=== PATIENT | female | born 1960 | race Caucasian/White ===

== ENCOUNTER → 2024-11-21 14:46 | Outpatient (REF) | payer BC, SELFPAY | LOC: HWRAD 14:46 | PROVIDERS: ATTENDING PHYSICIAN Nurse Practitioner Family | DX: R19.00 Intra-abdominal and pelvic swelling, mass and lump, unspecified site (principal); J18.9 Pneumonia, unspecified organism; R63.4 Abnormal weight loss | CPT/HCPCS: 76705 ==

== ENCOUNTER → 2025-01-02 14:46 | Outpatient (REF) | payer BC, SELFPAY | LOC: HWWDC 14:46 | PROVIDERS: ATTENDING PHYSICIAN Nurse Practitioner Family | DX: Z12.31 Encounter for screening mammogram for malignant neoplasm of breast (principal) | CPT/HCPCS: 77063; 77067 ==

== ENCOUNTER 2025-02-17 06:18 | Day surgery (SDC) | payer BC, SELFPAY ==
[2025-02-17] VITALS (8 sets, daily range): BP systolic 99–126; BP diastolic 50–71; BMI 29.9
[2025-02-17] MEDS: TYLENOL 1000 MG PO (10:54)
--- NOTE | 2025-02-17 11:21 | W.SUR.PREOP ---
Pre-Operative Surgical Note
-
I have examined this patient prior to the performance of the scheduled procedure.
The patient's condition is unchanged from the time of the current History and
Physical and the patient is able to undergo the scheduled procedure.
--- NOTE | 2025-02-17 11:22 | HP.FOC2 ---
Focused History & Physical
Chief Complaint
HPI:
Chief Complaint: Abdominal wall lipoma
HPI / Indication for Planned Procedure: This is a 64-year-old female who presents with a symptomatic right flank abdominal wall lipoma.
Relevant Past Medical History: Negative
Relevant Social History: Negative
Relevant Family History: Negative
Relevant Past Surgical History: Negative
Review of Systems
Review of Pertinent Systems: All Systems Negative
Medication
See Medication form for detailed medications: Yes
Medication List (including Herbals & OTC):
amlodipine 5 mg tablet 5 mg PO DAILY 02/09/25
fluticasone propionate 50 mcg/actuation nasal spray,suspension 1 spray intranasal DAILY 02/09/25
loratadine 10 mg tablet (Claritin) 10 mg PO DAILY 02/09/25
losartan 100 mg tablet 100 mg PO DAILY 02/09/25
montelukast 10 mg tablet 10 mg PO DAILY 02/09/25
rosuvastatin 10 mg tablet 10 mg PO DAILY 02/09/25
tirzepatide (weight loss) 10 mg/0.5 mL subcutaneous pen injector (Zepbound) 10 mg SC QWEEK 02/09/25
melatonin 10 mg tablet 10 mg PO HS PRN sleep 02/17/25
Medications Reviewed: Yes
Allergies and Reactions
Patient has Allergies: Yes
Noted Allergies and Reactions:
Allergy/AdvReac Type Severity Reaction Status Date / Time
amoxicillin (From Augmentin) Allergy GI upset Verified 02/17/25 10:44
clavulanic acid (From Allergy GI upset Verified 02/17/25 10:44
Augmentin)
Quinolones Allergy hives,rash Verified 02/17/25 10:44
Pertinent Physical Exam
All Other Systems: Negative
Head/Neck: Normal
Diagnosis / Assessment
This is a 64-year-old female who presents with a symptomatic 12 cm right flank abdominal wall lipoma confirmed on ultrasound imaging.
Plan / Procedure
Will plan for open excision of her right flank abdominal wall lipoma and drain placement today.
Anesthesia/Sedation to be done by Anesthesia Provider: Yes
--- NOTE | 2025-02-17 13:09 | W.IMMPOSTOP ---
Surgical Immed Post Op Note
-
Primary Surgeon: Cornelio Martinez MD
Assisting Surgeon: None
Pre-op Diagnosis: Right flank abdominal wall lipoma
Post-op Diagnosis: Same
Procedure Performed: Excision of a right flank abdominal wall lipoma just
Anesthesia Type: General
Specimen / Cultures: Right flank abdominal wall lipoma (19 x 11 x 3 cm)
Estimated Blood Loss: 1 cc
Complications: None
Operative Findings: A 19 cm encapsulated lipoma was removed from the right flank wall. A 15 Finnish round Solomon drain was introduced through a stab incision and secured to the skin with a 2-0 nylon suture to drain the space.
--- NOTE | 2025-02-17 13:14 | OR.RPT ---
Operative Report
Operative Report
Patient Name: Girish Coulter
: 1960
Date of Operation: 02/17/2025
Preoperative Diagnosis: Right flank abdominal wall lipoma
Postoperative Diagnosis: Same
Procedure(s):
Excision of a right flank abdominal wall lipoma
Surgeon(s):
Dr. Martinez
Financial Services Auditor(s):
None
Anesthesia: MAC
Estimated Blood Loss: 1 cc
Urine Output: None
Drains/Lines/Implants: 15 Romanian round Solomon drain
Specimens:
1. Lipoma
Indication for surgery:
This is a 64-year-old female who presented to my office with large right flank abdominal wall mass with ultrasound imaging concerning for a lipoma. After evaluation in the office the diagnosis of a lipoma was confirmed. After discussion of risk
benefits and alternatives they elected and were consented for surgery.
Operative Findings: A 19 x 11 x 3 cm encapsulated lipoma was removed from the right flank wall. A 15 Romanian round Solomon drain was introduced through a stab incision and secured to the skin with a 2-0 nylon suture to drain the space.
Details of the operation:
The patient was brought to the operating room a placed in a modified left lateral decubitus position with bumps underneath her right side to elevate the flank. After appropriate sedation by anesthesia, the area of the right flank was prepped and
draped in the usual fashion. A linear incision over natural skin line was made over the mass and carried down through the subcutaneous tissue. The Lipoma was identified and found to be encapsulated. The lipoma was freed circumferentially taking
care not to come across the many interdigitating extensions that it had. The specimen which measured roughly 19 x 11 x 3 cm was passed off the field. The cavity was irrigated and hemostasis was achieved. Given the size of the cavity, a 15 Romanian
round Solomon drain was inserted through a stab incision into the cavity and secured to the skin with a 2-0 nylon suture. The dermis was then approximated using interrupted 3-0 Vicryl sutures followed by a running 4-0 monocryl, followed by dermabond.
All counts were correct at the end of procedure. The patient was then transferred to the PACU for recovery.
I was the attending physician and performed the procedure without assistance. I was present for all portions of the case
Cornelio Martinez MD
== END 2025-02-17 14:05 | disposition home or self-care (01) ==
LOC: SDS 06:18
PROVIDERS: ATTENDING PHYSICIAN Surgery
DX: D17.1 Benign lipomatous neoplasm of skin and subcutaneous tissue of trunk (principal)
CPT/HCPCS: 22903; 88304; C1729